=== PATIENT | female | born 1975 ===

== ENCOUNTER 2024-12-02 06:00 | Day surgery (SDC) | payer OTHER ==
[2024-11-27 10:18] VITALS: BP 115/73
[~2024-12-02] VITALS: Ht 160 cm; Wt 54.4 kg
[2024-12-02] MEDS ORDERED: HEMOSTATIC MATRIX 1 KIT KIT TOP ONE (07:27)
[2024-12-02] MEDS ORDERED: BUPIVACAINE HCL/MPF 0.5% 30ML VIAL ONE (07:28)
[2024-12-02] MEDS ORDERED: LIDOCAINE HCL 1%/EPINEPHRINE 20ML VIAL IJ ONE (07:28)
[2024-12-02] MEDS ORDERED: DIBUCAINE 30 GM TUBE ONE (07:28)
[2024-12-02] MEDS ORDERED: POVIDONE-IODINE 118 ML BOTT TOP ONE (07:28)
[2024-12-02] MEDS ORDERED: CEFTRIAXONE SODIUM 2,000 MG VIAL ONE ×2 (07:37→07:46)
[2024-12-02] MEDS ORDERED: METRONIDAZOLE/SODIUM CHLORIDE 500 MG/100 ML PIGGYBACK IV ONE ×2 (07:37→07:46)
[2024-12-02] MEDS ORDERED: RECTICARE30 GM TOP (09:00)
[2024-12-02] MEDS ORDERED: PERCOCET 5-3251 EACH PO (09:00)
== END 2024-12-02 13:40 | disposition home or self-care (01) ==
LOC: CIR.AMB 06:00
PROVIDERS: ATTEND Surgery
DX: D12.8 Benign neoplasm of rectum (principal); K62.89 Other specified diseases of anus and rectum